=== PATIENT | female | born 1965 | race American Indian/Alaskan Native ===

== ENCOUNTER 2017-08-12 13:07 | Outpatient (CLI) | payer BC ==
--- NOTE | 2017-08-12 16:01 | XRay Report ---
XRAY RIGHT KNEE 4 THREE VIEWS: 08/12/17 CLINICAL: Right knee pain. FINDINGS: Mild medial and lateral joint space narrowing with small osteophytes. Normal patellofemoral joint. No fracture or dislocation.No joint effusion.Normal soft tissues. IMPRESSION: Mild osteoarthritis.
== END 2017-08-12 13:08 | disposition home or self-care (01) ==
LOC: SPVIMAG 13:07
PROVIDERS: ATTEND Orthopaedic Surgery
DX: M17.11 Unilateral primary osteoarthritis, right knee (principal)